=== PATIENT | male | born 1980 | race Caucasian/White ===

== ENCOUNTER 2021-05-02 12:44 | Emergency (ER) | payer SELFPAY ==
[2021-05-02] MEDS ORDERED: Ketorolac 30 MG/ML SDV IM ONE (13:34)
[2021-05-02] MEDS ORDERED: Orphenadrine 60 MG/2 ML Inj IM ONE (13:34)
[2021-05-02] MEDS ORDERED: Dexamethasone 4 MG/ML SDV IM ONE (13:34)
--- NOTE | 2021-05-02 14:28 | CR ---
PROCEDURE INFORMATION: Exam: XR Lumbosacral Spine Exam date and time: 05/02/2021 1:37 PM Age: 41 years old Clinical indication: Low back pain TECHNIQUE: Imaging protocol: XR of the lumbosacral spine. Views: 2 or 3 views. COMPARISON: No relevant prior studies available. FINDINGS: Bones/joints: Near anatomic alignment. No fracture or compression fracture seen.The facet joints are appropriately oriented. There is no significant degenerative change involving the facets. No posterior arch fracture seen. Small anterior osteophytes multiple levels. Mild narrowing of the L3-L4 disc.The pedicles are intact. No visible bone destruction. Soft tissues: There is no soft tissue abnormality seen. IMPRESSION: Minor degenerative changes as described.
--- NOTE | 2021-05-02 14:45 | EDM.PDOC ---
Scribed by Dolores Su 05/02/21 1416 for Della Gamboa NP ED HPI GENERAL MEDICAL PROBLEM - General Chief Complaint: Back Pain or Injury Stated Complaint: [id number] DID SOMETHING TO BACK Time Seen by Provider: 05/02/21 13:24 Source of Information: Reports: Patient, RN, RN Notes Reviewed History Limitations: Reports: No Limitations - History of Present Illness INITIAL COMMENTS - FREE TEXT/NARRATIVE: Patient is a 41-year-old male who presents to ER with complaint of severe low salma pain which began last evening. Patient states this happens 1-2 times per year. He states any movement or cough causes muscle spasms in the low back that shoot upward. Patient denies numbness or tingling down legs, saddle anesthesia, or incontinence of bowel or bladder. States he has been trying to stretch and exercise the salma with no help. HE took Ibuprofen at 8 A.M. States he has seen a specialist, but has not had an MRI due to insurance declining. Patient denies any falls or injuries. Onset Date: 05/01/21 Duration: Constant Location: Reports: Back Quality: Reports: Ache Severity: Moderate Improves with: Reports: None Worsens with: Reports: None Associated Symptoms: Reports: No Other Symptoms Bilateral Lower Back Pain Score (Numeric/FACES): 10 - Related Data Allergies Allergy/AdvReac Type Severity Reaction Status Date / Time Penicillins Allergy Unknown Other Verified 05/02/21 13:10 Home Meds: Home Meds . [No Known Home Meds] 05/02/21 [History] ED ROS GENERAL - Review of Systems Review Of Systems: Comprehensive ROS is negative, except as noted in HPI. ED EXAM, UPPER BACK/NECK PAIN - Physical Exam Exam: See Below Exam Limited By: No Limitations General Appearance: Moderate Distress Eye Exam: Bilateral Eye: EOMI, Normal Inspection, PERRL Ears Exam: Normal External Exam, Normal Canal, Hearing Grossly Normal, Normal TMs Nose Exam: Normal Inspection, Normal Mucousa, No Blood Throat/Mouth Exam: Normal Inspection, Normal Lips, Normal Teeth, Normal Gums, Normal Oropharynx, Normal Voice, No Airway Compromise Head Exam: Atraumatic, Normocephalic Neck Exam: Non-Tender, Full Range of Motion, Normal Alignment, Normal Inspection Cardiovascular/Respiratory: Regular Rate, Rhythm, No M/R/G, Normal Peripheral Pulses, No JVD, Normal Breath Sounds, No Respiratory Distress GI/Abdominal: Normal Bowel Sounds, Soft, Non-Tender, No Organomegaly, No Distention, No Abnormal Bruit, No Mass (Male) Exam: Deferred Rectal (Males) Exam: Deferred Back Exam: Other (low back pain and decreased range of motion) Extremities: Normal Inspection, Normal Range of Motion, Non-Tender, No Pedal Edema, Normal Capillary Refill 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-XII nml As Tested, No Motor/Sensory Deficits, Alert, Normal Mood/Affect, Oriented x 3 Psychiatric: Normal Affect, Normal Mood Skin Exam: Normal Color, Warm/Dry Lymphatic: No Adenopathy Course - Vital Signs Last Recorded V/S: Last Vital Signs Temp 97.9 F 05/02/21 13:07 Pulse 109 H 05/02/21 13:07 Resp 16 05/02/21 13:07 BP 131/74 05/02/21 13:07 Pulse Ox 98 05/02/21 13:07 - Orders/Labs/Meds Meds: Medications Discontinued Medications Generic Name Dose Route Start Last Admin Trade Name Philippq PRN Reason Stop Dose Admin Dexamethasone 8 mg 05/02/21 13:34 05/02/21 13:50 Dexamethasone 4 Mg/Ml Sdv IM 05/02/21 13:35 8 mg ONETIME ONE Administration Ketorolac Tromethamine 30 mg 05/02/21 13:34 05/02/21 13:50 Ketorolac 30 Mg/Ml Sdv IM 05/02/21 13:35 30 mg ONETIME ONE Administration Orphenadrine Citrate 60 mg 05/02/21 13:34 05/02/21 13:50 Orphenadrine 60 Mg/2 Ml Inj IM 05/02/21 13:35 60 mg ONETIME ONE Administration - Radiology Interpretation Free Text/Narrative:: Lumbar xray: PROCEDURE INFORMATION: Exam: XR Lumbosacral Spine Exam date and time: 05/02/2021 1:37 PM Age: 41 years old Clinical indication: Low back pain TECHNIQUE: Imaging protocol: XR of the lumbosacral spine. Views: 2 or 3 views. COMPARISON: No relevant prior studies available. FINDINGS: Bones/joints: Near anatomic alignment. No fracture or compression fracture seen.The facet joints are appropriately oriented. There is no significant degenerative change involving the facets. No posterior arch fracture seen. Small anterior osteophytes multiple levels. Mild narrowing of the L3-L4 disc.The pedicles are intact. No visible bone destruction. Soft tissues: There is no soft tissue abnormality seen. IMPRESSION: Minor degenerative changes as described. Thank you for allowing us to participate in the care of your patient. Dictated and Authenticated by: Jake Calles MD 05/02/2021 2:28 PM Central Time ([place] & [place]) See rad report Departure - Departure Time of Disposition: 14:15 Disposition: Home, Self-Care 01 Condition: Fair Clinical Impression: Low back pain Qualifiers: Chronicity: acute Back pain laterality: midline Sciatica presence: without sciatica Qualified Code(s): M54.5 - Low back pain - Discharge Information *PRESCRIPTION DRUG MONITORING PROGRAM REVIEWED*: No *COPY OF PRESCRIPTION DRUG MONITORING REPORT IN PATIENT DENNYS: No Instructions: Back Injury Prevention, [id number], Muscle Strain, [id number], What You Need to Know About Chronic Back Pain Forms: ED Department Discharge Additional Instructions: Rx: Cyclobenzaprine, ketorolac, dexamethasone as directed Do not take ketorolac with ibuprofen, use 1 or the other Follow-up with your primary care provider Call tomorrow morning to make an appointment with physical therapy Rest, alternate ice and heat to the back as tolerated No lifting No driving while taking cyclobenzaprine Sepsis Event Note (ED) - Focused Exam Vital Signs: Vital Signs Temp Pulse Resp BP Pulse Ox 05/02/21 13:07 97.9 F 109 H 16 131/74 98 I have read and agree with the documentation that has been completed regarding this visit. By signing this record, I attest that the documentation was completed in my physical presence and is an accurate record of the encounter.
== END 2021-05-02 14:21 | disposition home or self-care (01) ==
LOC: DL.ED 12:44
DX: M54.5 Low back pain (principal); Z88.0 Allergy status to penicillin
CPT/HCPCS: 72100; 96372; 99283; 99283-25; J1100; J1885; J2360